=== PATIENT | male | born 1980 | race Caucasian/White ===

== ENCOUNTER 2016-02-26 10:00 | Emergency (ER) | payer OTHER ==
[~2016-02-26] VITALS: Ht 177.8 cm; Wt 98.0 kg
[2016-02-26 10:30] VITALS: BP 152/95; PULSE 51; RESP 14; O2SAT 99
[2016-02-26] MEDS ORDERED: 0.9% Sodium Chloride 1,000 ML IV ONE ×2 (10:43→12:20)
[2016-02-26] MEDS ORDERED: Promethazine Inj 25 MG in 0.9% Sodium Chloride 50 ML IV ONE (10:45)
[2016-02-26] MEDS ORDERED: HYDROmorphone 1 mg/mL Inj IVPUSH ONE (11:05)
--- NOTE | 2016-02-26 12:14 | ED.REPORT ---
HPI-General Illness Date of Service Feb 26, 2016 ED Provider: Blas Gao MD A 35 year old male with a history of HIV presents to the ED complaining of vomiting that began earlier today. Associated symptoms include nausea and diarrhea. He reports that he has intermittent episodes of nausea and vomiting that are typically relieved by Zofran. His last CD4 was 1401 on 07/14. He has been taking his anti retroviral medication as directed. Patient was sent from Urgent Care. He is seeking symptom control at this time. Patient denies hematochezia. Nursing Notes Stated Complaint: VOMITING/NAUSEA Chief Complaint: Male Abdominal Pain Nursing Notes Reviewed: Yes Allergies: Coded Allergies: doxycycline (Verified Allergy, Severe, anaphalaxis, 02/26/16) Scheduled PRN Ondansetron ODT (Zofran ODT) 8 Mg Tablet 8 MG PO Q4H PRN PRN For Nausea General Time Seen by MD: 10:26 Chief Complaint Vomiting Hx Obtained From: Patient Arrived By: Walk-in Sudden in Onset?: No Onset Occurred: 1 - 4 hours ago Symptom Duration: Since onset Associated with: Reports: Nausea, Vomiting Additional Notes: Diarrhea Pertinent Negative: Pt denies other symptoms Recent Healthcare: No recent doctor visit, No recent hospitalization Past Medical History Past Medical History HIV positive- currently on anti retroviral medication Past Surgical History None reported Smoking History Unknown if Ever Smoker Social History Other Social History: Local resident Ambulatory Status Independent Review of Systems Full Review of Systems Constitutional: Denies: Chills, Fever Respiratory: Denies: Shortness of breath Cardiovascular: Denies: Chest pain GI: Reports: Diarrhea, Nausea, Vomiting, Denies: Abdominal pain, Hematochezia Neurologic: Denies: Change LOC Complete sys rev & neg: except as marked. Physical Exam Vital Signs Vital Signs Date Time Temp Pulse Resp B/P Pulse Ox O2 Delivery O2 Flow Rate FiO2 02/26/16 13:51 134/88 02/26/16 10:30 37 51 14 152/95 99 Room Air Initial VS: Reviewed Head / Eyes: Atraumatic, Normocephalic, PERRL Neck: Supple, Non-tender, Full range of motion Extremities: Vascular intact, Neuro intact, No swelling, No tenderness Skin: Warm, Dry, No cyanosis Neurologic: Alert, Oriented, Nonfocal Psychiatric: Mood/affect normal, Behavior normal, Normal thought content General/Constitutional: Awake, Alert ENT: Atraumatic, Airway patent Mouth: Positive: Mucous membranes dry Respiratory / Chest: Atraumatic, Breath sounds NL, Breath sounds = bilat Cardiovascular: Heart rate NL, Regular rhythm, Heart sounds NL, No gallop, No murmurs, No rubs Abdomen: Atraumatic, Soft, Non-tender (Tolerates firm palpation to all 4 quadrants ), No rebound, BS normoactive, No distention ABDOMEN: No rigidity Lower Extremity / Pelvis / MS: Atraumatic, Non-tender (No calf tenderness), Neurologic intact, Vascular intact, No edema (No calf swelling ) Re-Eval/Medical Decision Med Decision/Clinical Course In summary, the patient is a 35-year-old male with a history of HIV, on HARRT who presents complaining of vomiting and diarrhea. He states that this is his baseline but occasionally has flares. His CD4 has been stable at 1500s and he is taking all of his antiretrovirals. LABS (from Urgent Care just prior to arrival) Leukocytes = 12.5 Stable hematocrit = 47.8 Good renal function No significant electrolyte abnormalities Normal lipase Normal bilirubin Abdominal examinations were benign and there are no findings suggest acute surgical intra-abdominal process. The patient stated this is similar to his previous episodes of vomiting and diarrhea that he was out of his antiemetics. I do not feel that imaging studies are indicated. I considered HIV specific causes of the patient's diarrhea however with a CD4 1500 and afebrile this seems unlikely. His symptoms are most likely secondary to his antiretroviral medications which have been the cause of the past. He was treated with antiemetics and IV fluids and reported significant symptomatic improvement. At this time feel it is appropriate for discharge. He was prescribed Zofran. Follow-up and return precautions were reviewed in detail he was discharged in good condition. Time of Eval: 12:49 Patient Status: Condition improved Re-Evaluation/Progress Note: Patient is rechecked. He is informed of his lab results and diagnosis. Patient understands and agrees with the treatment plan. Counseled Regarding: Diagnosis, Lab results, Need for follow-up, When/why to return to ED Discharge & Departure Primary Impression: Nausea & vomiting Vomiting type: unspecified Vomiting Intractability: unspecified Qualified Code: R11.2 - Nausea with vomiting, unspecified Additional Impressions: HIV positive History of antiretroviral therapy Diarrhea Dehydration Disposition: Home Discharge Condition All VS Reviewed: Yes Condition: Stable Patient Instructions: Acute Diarrhea (ED), Acute Nausea and Vomiting (ED) Additional Instructions: Thank you for seeking care at emergency room. You were seen today for a flare-up of your diarrhea and vomiting. Our primary goal today in the ED was to evaluate you for any life-threatening conditions. Your evaluation was reassuring. You will be discharged with a prescription for Zofran, please take as directed. You should follow-up with your primary doctor in the next week. You should return to the ED immediately if you develop worsening symptoms, inability to keep down fluids, fevers, bloody vomiting or diarrhea, cough, shortness of breath, chest pain, lightheadedness, weakness or any other concerning signs or symptoms. Thank you for letting us partake in your care today. Referrals: OTHER,PHYSICIAN (PCP) KRISH TRUJILLO [facility] Scribe Attestation Portions of this note were transcribed by Junior Vega. I, Dr. Gao personally performed the history, physical exam and medical decision-making; I reviewed and confirmed the accuracy of the information in the transcribed note. Signed by: Junior Vega, 02/26/16, 1252. Blas Gao MD Feb 26, 2016 12:14 JUNIOR VEGA Feb 26, 2016 12:18
[2016-02-26] MEDS ORDERED: ONDA8TAB7 PO (12:15)
[2016-02-26 13:51] VITALS: BP 134/88
== END 2016-02-26 13:52 | disposition home or self-care (01) ==
LOC: SED 10:00
DX: R11.2 Nausea with vomiting, unspecified (principal); E86.0 Dehydration; R19.7 Diarrhea, unspecified; Z21 Asymptomatic human immunodeficiency virus [HIV] infection status; Z92.29 Personal history of other drug therapy; Z88.8 Allergy status to other drugs, medicaments and biological substances
CPT/HCPCS: 96361; 96374; 96375; 99284; J1170; J7030

== ENCOUNTER 2016-03-22 20:29 | Emergency (ER) | payer OTHER ==
[~2016-03-22] VITALS: Ht 177.8 cm; Wt 100.0 kg
[~2016-03-22 20:29] MED LIST: ONDA8TAB7 PO
[2016-03-22 20:32] VITALS: BP 153/90; PULSE 88; RESP 16; O2SAT 97
--- NOTE | 2016-03-22 21:20 | ED.REPORT ---
HPI-Extremity Problem Lower Date of Service Mar 22, 2016 ED Provider: Everton Rincon MD Patient is a 35 year old male who is HIV positive and presents to the ED with left lower leg redness, warmth, tenderness, and swelling increasing over the past 5 days. He denies any extension of these symptoms above his knee. Patient denies a fever, chills, shortness of breath, or chest pain. He denies a history of MRSA. The patient is on anti-retroviral medication for his HIV, with his viral load has been undetectable for the past 5 years. He has not had any opportunistic infections. Nursing Notes Stated Complaint: L LEG PAIN/SWELLING Chief Complaint: Extremity Trauma Nursing Notes Reviewed: Yes Allergies: Coded Allergies: doxycycline (Verified Allergy, Severe, anaphalaxis, 03/22/16) Scheduled Cephalexin (Keflex) 500 Mg Capsule 500 MG PO QID Scheduled PRN Ondansetron ODT (Zofran ODT) 8 Mg Tablet 8 MG PO Q4H PRN PRN For Nausea General Time Seen by MD: 21:19 Chief Complaint Leg injury left Hx Obtained From: Patient Arrived By: Walk-in Onset Occurred: 5 days ago Symptom Duration: Since onset Location: : Leg left Quality: Painful Severity: Current: Moderate Severity: Maximum: Moderate Recent Healthcare: No recent doctor visit, No recent hospitalization Similar Sx Previous: No Past Medical History Past Medical History HIV positive- currently on anti retroviral medication Past Surgical History None reported Smoking History Unknown if Ever Smoker Social History Other Social History: Good social support, Local resident Ambulatory Status Independent Review of Systems Constitutional: Denies: Chills, Fever Musculoskeletal: Reports: Extremity pain, Extremity swelling Complete sys rev & neg: except as marked. Respiratory: Denies: Non-productive cough, Shortness of breath Cardiovascular: Denies: Chest pain Physical Exam Initial Vital Signs Vital Signs (First) Date Time Temp Pulse Resp B/P Pulse Ox O2 Delivery O2 Flow Rate FiO2 03/22/16 20:32 36.8 88 16 153/90 97 Room Air Initial VS: Reviewed Head / Eyes: Atraumatic, Normocephalic, PERRL ENT: Conjunctiva normal, No scleral icterus Neck: Supple, Full range of motion Upper Extremities: Vascular intact, Neuro intact Skin: Warm, Dry, No cyanosis Neurologic: Alert, Oriented, Nonfocal Psychiatric: Mood/affect normal, Behavior normal, Normal thought content Lower Extremity / Pelvis / MS: Neurologic intact, Vascular intact left lower extremity is tender, with 1+ edema, and a hazy red erythema over the anterior medial sanders. scratches on both legs, right >left. Ankle / Foot: Neurologic intact, Vascular intact General/Constitutional: Awake, Alert, No acute distress Respiratory / Chest: Breath sounds NL, Breath sounds = bilat, No respiratory distress, No rales, No rhonchi, No wheezing Cardiovascular: Heart rate NL, Regular rhythm, No murmurs Interpretation & Diagnostics Lab Results Interpretation Result Diagram: 03/22/16214403/22/162144 Test 03/22/16 21:45 White Blood Count 11.1th/mm3 (3.8-10.1) Red Blood Count 5.09mil/mm3 (4.40-5.80) Hemoglobin 16.0g/dL (13.8-17.2) Hematocrit 46.9% (41.0-50.0) Mean Corpuscular Volume 92.1fL (81-100) Mean Corpuscular Hemoglobin 31.4pg (27.0-35.0) Mean Corpuscular Hemoglobin Concent 34.1% (32.0-37.0) Red Cell Distribution Width 12.7% (12.3-15.4) Platelet Count 218bil/L (150-400) Neutrophils (%) (Auto) 63.7% (40-74) Lymphocytes (%) (Auto) 28.3% (14-46) Monocytes (%) (Auto) 6.8% (4-12) Eosinophils (%) (Auto) 0.5% (0-5) Basophils (%) (Auto) 0.4% (0-3) Sodium Level 139mEq/L (134-144) Potassium Level 4.0mEq/L (3.5-5.2) Chloride Level 99mEq/L (97-108) Carbon Dioxide Level 24mmol/L (18-29) Blood Urea Nitrogen 14mg/dL (6-20) Creatinine 0.66mg/dL (0.76-1.27) Estimat Glomerular Filtration Rate 146mL/min (>59) Glucose Level 99mg/dL (60-99) Calcium Level 9.8mg/dL (8.5-10.1) Total Bilirubin 0.3mg/dL (0.0-1.2) Aspartate Amino Transf (AST/SGOT) 34U/L (0-50) Alanine Aminotransferase (ALT/SGPT) 31U/L (0-44) Alkaline Phosphatase 67U/L (25-150) Total Protein 7.9g/dL (6.4-8.4) Albumin 4.8g/dL (3.4-5.0) Hold Marie Top Tube Received (Received) Re-Eval/Medical Decision Med Decision/Clinical Course Focal cellulitis on the lower left leg with skin scratches as the probable port of entry. No evidence of proximal edema or tenderness or cords, no specific risk factor for DVT in any case. He is begun with Keflex after IV Ancef here. Discharged home in stable condition. HIV disease is well controlled with zero viral copies and very adequate CD4 count on highly active antiretroviral therapy Source of Hx: Old records Re-Evaluation/Progress : Time of Eval: 23:34 Patient Status: Condition improved Re-Evaluation/Progress Note: Patient was treated for cellulitis in the ED and will be discharged on antibiotics. Patient understands and agrees with the plan to be discharged home. Discharge instructions and follow-up discussed. All questions were addressed. Return to the ED warnings given. Counseled Regarding: Diagnosis, Lab results, Need for follow-up, When/why to return to ED Discharge & Departure Impression: Primary Impression: Cellulitis of leg Laterality: left Qualified Code: L03.116 - Cellulitis of left lower limb Additional Impression: HIV positive Disposition: Home Discharge Condition All VS Reviewed: Yes Condition: Stable Patient Instructions: Cellulitis (ED) Additional Instructions: Keflex four times daily for ten days. Warm soaks four times daily to the lower leg Follow up with your doctor in the office Return here over the weekend if worsening despite treatment Referrals: OTHER,PHYSICIAN Jamarcusibjonas Attestation Portions of this note were transcribed by Kate Dhillon. I, Dr. Rincon personally performed the history, physical exam and medical decision-making; I reviewed and confirmed the accuracy of the information in the transcribed note. Signed by: Sukhjinder Rader, 03/22/2016 0699 copies to: OTHER,PHYSICIAN Everton Rincon MD Mar 22, 2016 21:20 Kate Dhillon Mar 22, 2016 21:29
[2016-03-22] MEDS ORDERED: CeFAZolin Inj 2 GM in IV Premix 1 EACH IV ONE (21:30)
[2016-03-22 21:56] LABS: BASOPHILS % (AUTO) 0.4 % (0-3); EOSINOPHILS % (AUTO) 0.5 % (0-5); MONOCYTES % (AUTO) 6.8 % (4-12); Mean Corpuscular Hemoglobin 31.4 pg (27.0-35.0); Mean Corpuscular Volume 92.1 fL (81-100); NEUTROPHILS % (AUTO) 63.7 % (40-74); Platelet Count 218 bil/L (150-400)
[2016-03-22] MEDS ORDERED: CEPH-512 PO (22:06)
[2016-03-22] MEDS ORDERED: 0.9% Sodium Chloride 1,000 ML IV ONE (22:25)
[2016-03-22 23:37] VITALS: BP 144/91; PULSE 70; RESP 18; O2SAT 97
== END 2016-03-22 23:39 | disposition home or self-care (01) ==
LOC: SED 20:29
DX: L03.116 Cellulitis of left lower limb (principal); Z21 Asymptomatic human immunodeficiency virus [HIV] infection status; Z88.1 Allergy status to other antibiotic agents
CPT/HCPCS: 36415; 80053; 85025; 87040; 96365; 99284; J0690; J7030

== ENCOUNTER 2016-03-29 12:59 | Emergency (ER) | payer OTHER ==
[~2016-03-29] VITALS: Ht 177.8 cm; Wt 100.0 kg
[~2016-03-29 12:59] MED LIST changes: +CEPH-512 PO
[2016-03-29 13:07] VITALS: BP 139/91; PULSE 70; RESP 16; O2SAT 98
[2016-03-29] MEDS ORDERED: EFAV1TAB PO (13:10)
--- NOTE | 2016-03-29 13:17 | ED.REPORT ---
HPI-Extremity Problem Lower Date of Service Mar 29, 2016 ED Provider: Simon Medeiros DO The patient is a 35 year old male with history of HIV who presents to the emergency department complaining of a left leg infection that began 10 days ago. He was seen in the emergency department 1 week ago for the same symptoms. He was given IV antibiotics and discharged home with oral cephalexin. Initially his symptoms were improving but has remained the same for the last 4-5 days. His symptoms have not worsened. He has experienced some pain, redness, warmth, and swelling. He denies fever, chills, nausea or vomiting. Nursing Notes Stated Complaint: LEFT LEG CELLULITIS Chief Complaint: Extremity Trauma Nursing Notes Reviewed: Yes Allergies: Coded Allergies: doxycycline (Verified Allergy, Severe, anaphalaxis, 03/29/16) Scheduled Cephalexin (Keflex) 500 Mg Capsule 500 MG PO QID Efavirenz/Emtricitab/Tenofovir (Atripla) 1 Each Tablet 1 TABLET PO DAILY Sulfamethoxazole/Trimeth 800-160 mg (Bactrim DS 800-160 mg) 1 Each Tablet 1 TABLET PO BID Scheduled PRN Ondansetron ODT (Zofran ODT) 8 Mg Tablet 8 MG PO Q4H PRN PRN For Nausea General Time Seen by MD: 13:15 Chief Complaint Leg injury left Hx Obtained From: Patient Arrived By: Walk-in Onset Occurred: More than a week ago... Symptom Duration: Since onset Location: : Leg left Quality: Painful Severity: Current: Mild Severity: Maximum: Moderate Recent Healthcare: No recent hospitalization, Recent doctor visit Similar Sx Previous: Yes Risk-Extremity Prob Lower Well's Criteria for DVT Well's DVT Score: 0 pts (low risk 5%) Past Medical History Past Medical History HIV positive- currently on anti retroviral medication Past Surgical History None reported Family History Noncontributory Smoking History Unknown if Ever Smoker Social History Other Social History: Good social support, Local resident Ambulatory Status Independent Review of Systems Constitutional: Denies: Chills, Fever Musculoskeletal: Reports: Extremity pain, Extremity swelling Skin: Reports Rash Complete sys rev & neg: except as marked. GI: Denies: Nausea, Vomiting Physical Exam Initial Vital Signs Vital Signs (First) Date Time Temp Pulse Resp B/P Pulse Ox O2 Delivery O2 Flow Rate FiO2 03/29/16 13:07 36.9 70 16 139/91 98 Room Air Initial VS: Reviewed Head / Eyes: Atraumatic, Normocephalic, PERRL ENT: Mucous membranes moist, Conjunctiva normal, No scleral icterus Neck: Supple, Non-tender, Full range of motion Respiratory: No respiratory distress Abdomen / GI: No distention Upper Extremities: Vascular intact, Neuro intact, No swelling, No tenderness Skin: Warm, Dry, No cyanosis Neurologic: Alert, Oriented, Nonfocal Psychiatric: Mood/affect normal, Behavior normal, Normal thought content Lower Extremity / Pelvis / MS: Neurologic intact, Vascular intact LEFT LEG: Minimal ankle swelling. Erythema of the distal third of his anterior sanders along the medial aspect. General/Constitutional: Awake, Alert Re-Eval/Medical Decision Med Decision/Clinical Course Partial treatment of a lower extremity cellulitis, well-appearing at this point, it does not sound like it has progressed but rather has not fully resolved. Will add Bactrim. Certainly does not appear septic or to have other deep space or life-threatening infection at this time. Patient is agreeable with discharge plan. Return precautions given. Source of Hx: Old records Re-Evaluation/Progress : Time of Eval: 13:35 Re-Evaluation/Progress Note: Discussed plan for discharge. All questions were addressed. Counseled Regarding: Diagnosis, Lab results, Need for follow-up, When/why to return to ED Discharge & Departure Impression: Primary Impression: Cellulitis of leg Laterality: left Qualified Code: L03.116 - Cellulitis of left lower limb Disposition: Home Discharge Condition All VS Reviewed: Yes Condition: Stable Additional Instructions: Thank you for entrusting us with your care today. We hope that you begin feeling better soon. Add Bactrim, this is an antibiotic that should help to clear your cellulitis. Keep you your foot elevated as much as possible, rest. Follow-up with a primary care doctor in the next 2 days for repeat evaluation. Return to the ER immediately if you develop high fever, shaking chills, lethargy , worsening redness swelling or rash, or other concerns Referrals: Sudha Gannon MDibjonas Attestation Portions of this note were transcribed by Aretha Neal. I, Dr. Medeiros personally performed the history, physical exam and medical decision-making; I reviewed and confirmed the accuracy of the information in the transcribed note. Signed by: Sukhjinder Ding, 03/28/2016 at 1345. Simon Medeiros DO Mar 29, 2016 13:17 Aretha Neal Mar 29, 2016 13:24
[2016-03-29] MEDS ORDERED: SULF1TAB35 PO (13:36)
== END 2016-03-29 13:52 | disposition home or self-care (01) ==
LOC: SED 12:59
DX: L03.116 Cellulitis of left lower limb (principal); X58.XXXA Exposure to other specified factors, initial encounter; Y93.9 Activity, unspecified; Y99.9 Unspecified external cause status; Y92.9 Unspecified place or not applicable; Z21 Asymptomatic human immunodeficiency virus [HIV] infection status; Z88.1 Allergy status to other antibiotic agents

== ENCOUNTER 2016-05-05 09:07 | Emergency (ER) | payer OTHER ==
[~2016-05-05 09:07] MED LIST changes: +EFAV1TAB PO; +SULF1TAB35 PO
[2016-05-05 09:09] VITALS: BP 159/102; PULSE 101; RESP 16; O2SAT 98
[2016-05-05] MEDS ORDERED: 0.9% Sodium Chloride 1,000 ML IV ONE (09:16)
[2016-05-05] MEDS ORDERED: Acetaminophen IV 1,000 MG in IV Premix 1 EACH IV ONE (09:20)
[2016-05-05] MEDS ORDERED: Pantoprazole 4 mg/mL 10 mL Inj IVPUSH ONE (09:20)
[2016-05-05] MEDS ORDERED: Dexamethasone 10 mg/mL Inj IVPUSH ONE (09:20)
[2016-05-05] MEDS ORDERED: MetoCLOpramide 5 mg/mL 2 mL Inj IVPUSH ONE (09:20)
[2016-05-05] MEDS ORDERED: Haloperidol 5 mg/mL Inj IVPUSH ONE (09:20)
[2016-05-05] MEDS: Ondansetron 2 mg/mL 2 mL Inj IVPUSH PRN ×2 (09:27→10:31)
[2016-05-05 10:07] LABS: BASOPHILS % (AUTO) 0.2 % (0-3); EOSINOPHILS % (AUTO) 0.3 % (0-5); MONOCYTES % (AUTO) 3.2 % (4-12); Mean Corpuscular Hemoglobin 31.1 pg (27.0-35.0); Mean Corpuscular Volume 92.8 fL (81-100); NEUTROPHILS % (AUTO) 77.2 % (40-74); Platelet Count 204 bil/L (150-400)
--- NOTE | 2016-05-05 10:09 | ED.REPORT ---
HPI-Abd Pain M Under 40 Date of Service May 05, 2016 ED Provider: Janes Gutierrez MD The patient is a 35 year old male with history of HIV, who presents to the emergency department complaining of nausea and vomiting that began at 0700 this morning while he was at work. He has also noticed abdominal pain and diaphoresis. He has had similar symptoms intermittently in the past. His symptoms are normally improved with Zofran but he did not have this medication with him at work. His last ED visit for similar symptoms was in early February. He was treated with IVF, hydromorphone, and promethazine, and was discharged home with Zofran. His current episode is similar to previous. In the past he had experienced episodes every few weeks. Over the last year he has only experienced 3-4 episodes. He denies fever, chills, bloody emesis, diarrhea, tarry/bloody stools, dysuria or hematuria. He has chronic diarrhea but he otherwise felt normal prior to this episode. He recently saw Dr. Guevara for left lower extremity cellulitis and is currently on Bactrim. Nursing Notes Stated Complaint: VOMITING Chief Complaint: Male Abdominal Pain Nursing Notes Reviewed: Yes Allergies: Coded Allergies: doxycycline (Verified Allergy, Severe, anaphalaxis, 03/29/16) Scheduled Cephalexin (Keflex) 500 Mg Capsule 500 MG PO QID Efavirenz/Emtricitab/Tenofovir (Atripla) 1 Each Tablet 1 TABLET PO DAILY Sulfamethoxazole/Trimeth 800-160 mg (Bactrim DS 800-160 mg) 1 Each Tablet 1 TABLET PO BID Scheduled PRN Ondansetron ODT (Zofran ODT) 8 Mg Tablet 8 MG PO Q4H PRN PRN For Nausea General Time Seen by MD: 09:15 Chief Complaint Nausea, Vomiting moderate Hx Obtained From: Patient Arrived By: Walk-in Sudden in Onset?: Yes Onset Occurred: 1 - 4 hours ago Symptom Duration: Since onset Progression since Onset: Constant Location: : Diffuse Quality: Painful Severity: Current: Moderate Severity: Maximum: Severe Associated with: Reports: Nausea, Vomiting Additional Notes: +diaphoresis Pertinent Negative: Pt denies other symptoms Recent Healthcare: No recent hospitalization, Recent doctor visit Similar Sx Previous: Yes Past Medical History Past Medical History HIV positive- currently on anti retroviral medication Past Surgical History None reported Family History Noncontributory Smoking History Unknown if Ever Smoker Social History Other Social History: Good social support, Local resident Ambulatory Status Independent Review of Systems Constitutional: Denies: Chills, Fever Respiratory: Denies: Non-productive cough GI: Reports: Abdominal pain, Diarrhea (chronic), Nausea, Vomiting, Denies: Bloody/tarry stool, Hematemesis, Hematochezia Male: Denies Dysuria, Denies Hematuria Complete sys rev & neg: except as marked. Skin: Reports Diaphoresis Physical Exam Initial Vital Signs Vital Signs (First) Date Time Temp Pulse Resp B/P Pulse Ox O2 Delivery O2 Flow Rate FiO2 05/05/16 09:09 35.2 101 16 159/102 98 Room Air Initial VS: Reviewed Head / Eyes: Atraumatic, Normocephalic, PERRL ENT: Mucous membranes moist, Conjunctiva normal, No scleral icterus Neck: Supple, Non-tender, Full range of motion Lymphatic: No lymphadenopathy Extremities: Vascular intact, Neuro intact, No swelling, No tenderness Neurologic: Alert, Oriented, Nonfocal Psychiatric: Mood/affect normal, Behavior normal, Normal thought content General/Constitutional: Awake, Alert, Cooperative Respiratory / Chest: Atraumatic, Breath sounds NL, Breath sounds = bilat, No respiratory distress, No rales, No rhonchi, No wheezing, No stridor Cardiovascular: Heart rate NL, Regular rhythm, Heart sounds NL, No gallop, No murmurs, No rubs, Peripheral circulation NL Abdomen: Soft, No guarding, No rebound, No distention, No hernia, No palpable mass, No pulsatile mass Tenderness/Guarding/Rebound: Positive: Tender diffuse Bowel Sounds / Distention: Positive: Bowel sounds hypoactive Back: No midline vertebral tend, No CVA tenderness Lower Extremity / Pelvis / MS: Atraumatic, Inspection NL, Full range of motion , No swelling, Non-tender, No erythema, No deformity, Neurologic intact, Vascular intact, No edema Color / Condition: Positive: Diaphoresis present Interpretation & Diagnostics Lab Results Interpretation Result Diagram: 05/05/1655 05/05/16 0955 Test 05/05/16 09:55 White Blood Count 9.5th/mm3 (3.8-10.1) Red Blood Count 4.88mil/mm3 (4.40-5.80) Hemoglobin 15.2g/dL (13.8-17.2) Hematocrit 45.3% (41.0-50.0) Mean Corpuscular Volume 92.8fL (81-100) Mean Corpuscular Hemoglobin 31.1pg (27.0-35.0) Mean Corpuscular Hemoglobin Concent 33.6% (32.0-37.0) Red Cell Distribution Width 13.3% (12.3-15.4) Platelet Count 204bil/L (150-400) Neutrophils (%) (Auto) 77.2% (40-74) Lymphocytes (%) (Auto) 18.8% (14-46) Monocytes (%) (Auto) 3.2% (4-12) Eosinophils (%) (Auto) 0.3% (0-5) Basophils (%) (Auto) 0.2% (0-3) Sodium Level 140mEq/L (134-144) Potassium Level 4.3mEq/L (3.5-5.2) Chloride Level 105mEq/L (97-108) Carbon Dioxide Level 19mmol/L (18-29) Blood Urea Nitrogen 16mg/dL (6-20) Creatinine 0.82mg/dL (0.76-1.27) Estimat Glomerular Filtration Rate 114mL/min (>59) Glucose Level 143mg/dL (60-99) Calcium Level 9.5mg/dL (8.5-10.1) Magnesium Level 1.9mg/dL (1.6-2.6) Total Bilirubin 0.2mg/dL (0.0-1.2) Aspartate Amino Transf (AST/SGOT) 43U/L (0-50) Alanine Aminotransferase (ALT/SGPT) 51U/L (0-44) Alkaline Phosphatase 67U/L (25-150) Total Protein 7.1g/dL (6.4-8.4) Albumin 4.9g/dL (3.4-5.0) Lipase 37U/L (13-60) Hold Amrie Top Tube Received (Received) Re-Eval/Medical Decision Source of Hx: Old records Re-Evaluation/Progress #1: Time of Eval: 10:02 Re-Evaluation/Progress Note: He is still complainig of abdominal pain. Re-Evaluation/Progress #2: Time of Eval: 10:50 Re-Evaluation/Progress Note: Rechecked the patient. He is feeling better. Re-Evaluation/Progress #3: Time of Eval: 11:20 Re-Evaluation/Progress Note: Discussed plan for discharge. All questions were addressed. Counseled Regarding: Diagnosis, Lab results, Need for follow-up, When/why to return to ED Patient Discharge & Departure Primary Impression: Nausea & vomiting Vomiting type: unspecified Vomiting Intractability: unspecified Qualified Code: R11.2 - Nausea with vomiting, unspecified Disposition: Home Discharge Condition All VS Reviewed: Yes Condition: Stable Patient Instructions: Acute Nausea and Vomiting (ED) Additional Instructions: Thank you for entrusting us with your care today. You can use Zofran as needed for your nausea and vomiting. Drink fluids as tolerated. When you feel like eating you should start with bland foods. Followup with Dr. Guevara as previously scheduled. Pleas return to the emergency department for any new or concerning symptoms. Referrals: Michael Guevara MD Attestation Portions of this note were transcribed by Aretha Neal. I, Dr. Gutierrez personally performed the history, physical exam and medical decision-making; I reviewed and confirmed the accuracy of the information in the transcribed note. Signed by: Sukhjinder Ding, 05/05/2016 and 1140. copies to: Michael Guevara MD, Kirk H MD May 05, 2016 10:09 Aretha Neal May 05, 2016 10:12
[2016-05-05] MEDS ORDERED: HYDROmorphone 1 mg/mL Inj IVPUSH ONE (10:10)
[2016-05-05 10:30] LABS: Magnesium 1.9 mg/dL (1.6-2.6)
[2016-05-05 10:54] VITALS: BP 123/53; PULSE 77; RESP 13; O2SAT 94
[2016-05-05 11:46] VITALS: BP 122/68; PULSE 71; RESP 15; O2SAT 96
== END 2016-05-05 11:45 | disposition home or self-care (01) ==
LOC: SED 09:07
DX: R11.2 Nausea with vomiting, unspecified (principal); R10.9 Unspecified abdominal pain; R61 Generalized hyperhidrosis; B20 Human immunodeficiency virus [HIV] disease; Z88.1 Allergy status to other antibiotic agents
CPT/HCPCS: 36415; 80053; 83690; 83735; 85025; 96361; 96374; 96375; 96376; 99284; J0131; J1100; J1170; J1200; J1630; J1885; J2405; J2765; J7030

== ENCOUNTER 2016-06-15 07:43 | Emergency (ER) | payer OTHER ==
[~2016-06-15] VITALS: Ht 177.8 cm; Wt 95.5 kg
--- NOTE | 2016-06-15 07:51 | ED.REPORT ---
HPI-General Illness Date of Service Jun 15, 2016 ED Provider: Dr. Simon Medeiros MD A 35 year old male with a history of HIV on antiretroviral medication presents to the ED with persistent vomiting that began 2 days ago. His symptoms have been present intermittently for the past year but became increasingly worse this morning. Associated symptoms include diaphoresis, nausea, diarrhea, abdominal discomfort and chills. His symptoms feel similar to his previous episodes, however, his symptoms were not relieved by his usual remedies (Zofran and hot shower). Patient was seen in the ED on 05/05 for similar symptoms and was discharged in good condition with a plan to follow-up with GI. He has been taking medication as prescribed and his last CD4 count was 1500. Nursing Notes Stated Complaint: VOMITING Chief Complaint: Male Abdominal Pain Nursing Notes Reviewed: Yes Allergies: Coded Allergies: doxycycline (Verified Allergy, Severe, anaphalaxis, 03/29/16) Scheduled Cephalexin (Keflex) 500 Mg Capsule 500 MG PO QID Efavirenz/Emtricitab/Tenofovir (Atripla) 1 Each Tablet 1 TABLET PO DAILY Ranitidine (Ranitidine) 150 Mg Capsule 150 MG PO BID Sulfamethoxazole/Trimeth 800-160 mg (Bactrim DS 800-160 mg) 1 Each Tablet 1 TABLET PO BID Scheduled PRN Metoclopramide (Reglan) 10 Mg Tablet 10 MG PO QID PRN PRN For Nausea/Vomiting Ondansetron ODT (Zofran ODT) 8 Mg Tablet 8 MG PO Q4H PRN PRN For Nausea General Time Seen by MD: 07:50 Chief Complaint Vomiting Hx Obtained From: Patient Arrived By: Walk-in Sudden in Onset?: No Onset Occurred: 1 - 4 hours ago Symptom Duration: Since onset Location: : Abdomen Quality: Painful ("acidic") Radiation: : Does not radiate Severity: Current: Mild Severity: Maximum: Moderate Associated with: Reports: Abdominal pain, Diaphoresis, Nausea, Vomiting Pertinent Negative: Pt denies other symptoms Pertinent Negative: Relieved by nothing Recent Healthcare: No recent doctor visit, No recent hospitalization Past Medical History Past Medical History HIV positive- currently on anti retroviral medication Past Surgical History None reported Family History Noncontributory Smoking History Unknown if Ever Smoker Social History Drug Use: THC Other Social History: Good social support, Local resident Ambulatory Status Independent Review of Systems Full Review of Systems Constitutional: Reports: Chills GI: Reports: Abdominal pain ("acidic"), Diarrhea, Nausea, Vomiting Skin: Reports Diaphoresis Complete sys rev & neg: except as marked. Physical Exam Vital Signs Vital Signs Date Time Temp Pulse Resp B/P Pulse Ox O2 Delivery O2 Flow Rate FiO2 06/15/16 12:55 61 15 136/88 96 Room Air 06/15/16 09:37 77 18 141/79 99 Room Air 06/15/16 08:10 36.5 103 34 143/89 98 Room Air 06/15/16 07:45 Room Air Initial VS: Reviewed Neck: Supple, Non-tender, Full range of motion Extremities: Vascular intact, Neuro intact, No swelling, No tenderness Skin: Warm, Dry, No cyanosis Neurologic: Alert, Oriented, Nonfocal Psychiatric: Mood/affect normal, Behavior normal, Normal thought content General/Constitutional: Awake, Alert Distress / Hydration: Positive: Distress moderate Head / Eyes: Atraumatic, Normocephalic, PERRL Respiratory / Chest: Atraumatic, Breath sounds NL, Breath sounds = bilat, No respiratory distress Cardiovascular: Heart rate NL, Regular rhythm, Heart sounds NL Abdomen: Atraumatic, Soft, Non-tender, No guarding, No rebound Skin: Atraumatic, Color NL Color / Condition: Positive: Diaphoresis present Interpretation & Diagnostics Lab Results Interpretation Result Diagram: 06/15/16 0800 06/15/16 0800 Test 06/15/16 08:00 White Blood Count 10.6th/mm3 (3.8-10.1) Red Blood Count 5.26mil/mm3 (4.40-5.80) Hemoglobin 16.6g/dL (13.8-17.2) Hematocrit 48.7% (41.0-50.0) Mean Corpuscular Volume 92.6fL (81-100) Mean Corpuscular Hemoglobin 31.6pg (27.0-35.0) Mean Corpuscular Hemoglobin Concent 34.1% (32.0-37.0) Red Cell Distribution Width 13.7% (12.3-15.4) Platelet Count 266bil/L (150-400) Neutrophils (%) (Auto) 61.3% (40-74) Lymphocytes (%) (Auto) 30.8% (14-46) Monocytes (%) (Auto) 6.2% (4-12) Eosinophils (%) (Auto) 0.9% (0-5) Basophils (%) (Auto) 0.5% (0-3) Sodium Level 139mEq/L (134-144) Potassium Level 4.0mEq/L (3.5-5.2) Chloride Level 103mEq/L (97-108) Carbon Dioxide Level 18mmol/L (18-29) Blood Urea Nitrogen 16mg/dL (6-20) Creatinine 0.75mg/dL (0.76-1.27) Estimat Glomerular Filtration Rate 126mL/min (>59) Glucose Level 138mg/dL (60-99) Calcium Level 10.8mg/dL (8.5-10.1) Magnesium Level 2.1mg/dL (1.6-2.6) Total Bilirubin 0.4mg/dL (0.0-1.2) Aspartate Amino Transf (AST/SGOT) 43U/L (0-50) Alanine Aminotransferase (ALT/SGPT) 53U/L (0-44) Alkaline Phosphatase 73U/L (25-150) Total Protein 8.6g/dL (6.4-8.4) Albumin 5.5g/dL (3.4-5.0) Lipase 31U/L (13-60) Hold Marie Top Tube Received (Received) Re-Eval/Medical Decision Time of Eval: 08:53 Patient Status: Condition unchanged Re-Evaluation/Progress Note: Patient is rechecked. Nausea is still present. Time of Eval: 09:26 Patient Status: Condition unchanged Re-Evaluation/Progress Note: Patient's vomiting persists. He would like to receive Reglan to help with the nausea. Time of Eval: 10:32 Patient Status: Condition improved Re-Evaluation/Progress Note: His symptoms have improved. He is informed of his lab results. Time of Eval: 12:38 Patient Status: Condition improved Re-Evaluation/Progress Note: Patient passes PO trial. He reports that his symptoms have improved. He is requesting ranitidine. Counseled Regarding: Diagnosis, Lab results, Need for follow-up, When/why to return to ED Discharge & Departure Primary Impression: Nausea & vomiting Vomiting type: cyclical vomiting Vomiting Intractability: unspecified Qualified Code: G43.A0 - Cyclical vomiting, not intractable Disposition: Home Discharge Condition All VS Reviewed: Yes Condition: Improved Patient Instructions: Acute Nausea and Vomiting (ED) Additional Instructions: Thank you for trusting us with your care this morning. Your emergency department results including lab work and examination are reassuring. A clear cause of your symptoms was not identified and I recommend you schedule a follow up appointment with your primary care physician in the next week for a recheck. Please take 1 Zofran or Reglan every 8 hours as needed for nausea and take ranitidine as prescribed. Please return to the ED if you begin to experience any new or worsening symptoms including any fever, chills, persistent vomiting or dizziness. Referrals: [facility] (PCP) [facility] Scribe Attestation Portions of this note were transcribed by Junior Henderson. I, Dr. Medeiros personally performed the history, physical exam and medical decision-making; I reviewed and confirmed the accuracy of the information in the transcribed note. Signed by: Sukhjinder Kruger, 06/15/16 1310. Simon Medeiros DO Jun 15, 2016 07:51 JUNIOR HENDERSON Jun 15, 2016 07:58
[2016-06-15] MEDS ORDERED: 0.9% Sodium Chloride 1,000 ML IV ONE ×3 (07:57→12:05)
[2016-06-15] MEDS ORDERED: Promethazine Inj 25 MG in 0.9% Sodium Chloride-Pha MIX 100 ML IV ONE (08:00)
[2016-06-15] MEDS: Ondansetron 2 mg/mL 2 mL Inj IVPUSH PRN ×2 (08:02→08:17)
[2016-06-15] MEDS: HYDROmorphone 0.5 mg/0.5 mL iSecure Syringe IVPUSH PRN ×2 (08:04→08:45)
[2016-06-15 08:10] VITALS: BP 143/89; PULSE 103; RESP 34; O2SAT 98
[2016-06-15] MEDS ORDERED: Pantoprazole 4 mg/mL 10 mL Inj IVPUSH ONE (08:10)
[2016-06-15 08:18] LABS: BASOPHILS % (AUTO) 0.5 % (0-3); EOSINOPHILS % (AUTO) 0.9 % (0-5); MONOCYTES % (AUTO) 6.2 % (4-12); Mean Corpuscular Hemoglobin 31.6 pg (27.0-35.0); Mean Corpuscular Volume 92.6 fL (81-100); NEUTROPHILS % (AUTO) 61.3 % (40-74); Platelet Count 266 bil/L (150-400)
[2016-06-15 08:50] LABS: Magnesium 2.1 mg/dL (1.6-2.6)
[2016-06-15] MEDS ORDERED: Haloperidol 5 mg/mL Inj IVPUSH ONE ×2 (09:15→09:55)
[2016-06-15 09:37] VITALS: BP 141/79; PULSE 77; RESP 18; O2SAT 99
[2016-06-15] MEDS ORDERED: MetoCLOpramide 5 mg/mL 2 mL Inj IVPUSH ONE (10:20)
[2016-06-15] MEDS ORDERED: METO-301 PO (11:08)
[2016-06-15] MEDS ORDERED: LidocaineVisc 2%:Antacid 1:1 10 mL Syringe PO ONE (11:40)
[2016-06-15] MEDS ORDERED: RANI150C4 PO (12:43)
[2016-06-15 12:55] VITALS: BP 136/88; PULSE 61; RESP 15; O2SAT 96
== END 2016-06-15 11:07 | disposition home or self-care (01) ==
LOC: SED 07:43
DX: G43.A0 Cyclical vomiting, in migraine, not intractable (principal); F12.90 Cannabis use, unspecified, uncomplicated; Z21 Asymptomatic human immunodeficiency virus [HIV] infection status; Z79.899 Other long term (current) drug therapy; Z88.1 Allergy status to other antibiotic agents
CPT/HCPCS: 36415; 80053; 83690; 83735; 85025; 96361; 96365; 96375; 96376; 99284; J1170; J1200; J1630; J2405; J2550; J2765; J7030

== ENCOUNTER 2016-07-28 20:51 | Emergency (ER) | payer OTHER ==
[~2016-07-28] VITALS: Ht 177.8 cm; Wt 90.9 kg
[~2016-07-28 20:51] MED LIST changes: +METO-301 PO; +RANI150C4 PO
[2016-07-28 20:56] VITALS: BP 145/103; PULSE 129; RESP 18; O2SAT 98
--- NOTE | 2016-07-28 21:30 | ED.REPORT ---
HPI-General Illness Date of Service Jul 28, 2016 ED Provider: Leon Momin MD A 35 year old male with a history of cyclic vomiting and AIDS on retroviral medication presents to the ED complaining of an episode of cyclic vomiting onset 15:30 today. The pt has taken three rounds of Zofran since this episode began without relief. He also complains of generalized abdominal discomfort and persistent nausea that have been present for the last two weeks. No acute pain is reported today. The pt has a history of medicinal marijuana use, but has not used any in four days. Nursing Notes Stated Complaint: NAUSEA AND VOMITING Chief Complaint: Male Abdominal Pain Nursing Notes Reviewed: Yes Allergies: Coded Allergies: doxycycline (Verified Allergy, Severe, anaphalaxis, 07/28/16) Scheduled Cephalexin (Keflex) 500 Mg Capsule 500 MG PO QID Efavirenz/Emtricitab/Tenofovir (Atripla) 1 Each Tablet 1 TABLET PO DAILY Ranitidine (Ranitidine) 150 Mg Capsule 150 MG PO BID Sulfamethoxazole/Trimeth 800-160 mg (Bactrim DS 800-160 mg) 1 Each Tablet 1 TABLET PO BID Scheduled PRN Metoclopramide (Reglan) 10 Mg Tablet 10 MG PO QID PRN PRN For Nausea/Vomiting Ondansetron ODT (Zofran ODT) 8 Mg Tablet 8 MG PO Q4H PRN PRN For Nausea General Time Seen by MD: 21:20 Chief Complaint Vomiting Hx Obtained From: Patient Arrived By: Walk-in Sudden in Onset?: Yes Onset Occurred: 5 - 8 hours ago Symptom Duration: Since onset Recent Healthcare: No recent hospitalization, Recent doctor visit Similar Sx Previous: Yes Past Medical History Past Medical History HIV positive- currently on anti retroviral medication Past Surgical History None reported Family History Noncontributory Smoking History Unknown if Ever Smoker Social History Drug Use: THC Other Social History: Good social support, Local resident Ambulatory Status Independent Review of Systems Full Review of Systems Respiratory: Denies: Non-productive cough, Shortness of breath Cardiovascular: Denies: Chest pain GI: Reports: Abdominal pain (discomfort), Nausea, Vomiting Musculoskeletal: Denies: Back pain, Neck pain Skin: Denies Rash Complete sys rev & neg: except as marked. Physical Exam Constitutional: Well-developed, well-nourished. Not diaphoretic. Appears uncomfortable. Actively vomiting. Head: Normocephalic and atraumatic. Mouth/Throat: Oropharynx is clear and moist. No oropharyngeal exudate. Eyes: EOM are normal. Pupils are equal, round, and reactive to light. Neck: Supple, no tracheal deviation. Cardiovascular: Normal rate, regular rhythm. Equal and intact distal pulses throughout. Pulmonary/Chest: Effort normal and breath sounds normal. No respiratory distress. Abdominal: Soft. No distension. General abdominal discomfort without tenderness , rebound, or guarding. No point tenderness. Bowel sounds present. Musculoskeletal: Range of motion grossly intact, moving all extremities. No edema or tenderness appreciated. Neurological: AOx3. Grossly nonfocal exam. Strength and sensation intact and equal to bilateral upper and lower extremities. Skin: Warm and dry, no rashes or pallor appreciated. Psychiatric: Appropriate mood and affect. Behavior appears normal. Vital Signs Vital Signs Date Time Temp Pulse Resp B/P Pulse Ox O2 Delivery O2 Flow Rate FiO2 07/28/16 20:56 36.4 129 18 145/103 98 Room Air Initial VS: Reviewed Interpretation & Diagnostics Lab Results Interpretation Test 07/28/16 22:04 Hold Purple Top Tube Received (Received) Hold Blue Top Tube Received (Received) Hold [place] Top Tube Received (Received) Re-Eval/Medical Decision Source of Hx: Old records Time of Eval: 00:17 Re-Evaluation/Progress Note: Pt rechecked, who is still retching. The plan for further treatment is discussed. Time of Eval: 01:23 Re-Evaluation/Progress Note: Pt eloped without discussing options for further treatment or AMA. Counseled Regarding: Diagnosis, Lab results, Need for follow-up, When/why to return to ED Discharge & Departure Primary Impression: Nausea & vomiting Vomiting type: unspecified Vomiting Intractability: non-intractable Qualified Code: R11.2 - Nausea with vomiting, unspecified Discharge Condition All VS Reviewed: Yes Condition: Stable Referrals: [facility] Scribe Attestation Portions of this note were transcribed by Chema Rodrigues. I, Dr. Momin personally performed the history, physical exam and medical decision-making; I reviewed and confirmed the accuracy of the information in the transcribed note. Signed by: Sukhjinder Terrell, 07/29/16 and 0126. copies to: [facility] Leon Momin MD Jul 28, 2016 21:30 CHEMA RODRIGUES Jul 28, 2016 21:38 [facility] Sukhjinder Attestation Portions of this note were transcribed by Chema Rodrigues. I, Dr. Momin personally performed the history, physical exam and medical decision-making; I reviewed and confirmed the accuracy of the information in the transcribed note. Signed by: Sukhjinder Terrell, 07/28/16 and 2133. copies to: [facility] Leon Momin MD Jul 28, 2016 21:30 CHEMA RODRIGUES Jul 28, 2016 21:38
[2016-07-28] MEDS ORDERED: 0.9% Sodium Chloride 1,000 ML IV ONE (21:58)
[2016-07-28] MEDS ORDERED: MetoCLOpramide 5 mg/mL 2 mL Inj IVPUSH ONE (22:00)
[2016-07-29] MEDS ORDERED: MetoCLOpramide 5 mg/mL 2 mL Inj IVPUSH PRN (01:10)
[2016-07-29] MEDS ORDERED: ONDA8TAB7 PO (15:12)
== END 2016-07-29 01:24 | disposition home or self-care (01) ==
LOC: SED 20:51
DX: R11.2 Nausea with vomiting, unspecified (principal); R10.9 Unspecified abdominal pain; B20 Human immunodeficiency virus [HIV] disease; Z88.1 Allergy status to other antibiotic agents
CPT/HCPCS: 96361; 96374; 96375; 96376; 99284; J2060; J2765; J7030

== ENCOUNTER 2016-07-29 10:38 | Emergency (ER) | payer OTHER ==
[~2016-07-29] VITALS: Ht 177.8 cm; Wt 90.9 kg
[2016-07-29 10:41] VITALS: BP 181/98; PULSE 114; RESP 18; O2SAT 99
--- NOTE | 2016-07-29 11:09 | ED.REPORT ---
HPI-Abd Pain M Under 40 Date of Service Jul 29, 2016 ED Provider: History of Present Illness: 35yo male with 2 days of worsening vomiting, also several episodes of diarrhea. Seen in this ED yesterday, however he eloped prior to completion of evaluation. He uses medical cannibis to aid nausea, is HIV positive. Denies fever, IVDA, alcohol use, hematemesis, hematochesia. He has previously been hospitalized at [facility] for similar symptoms. Nursing Notes Stated Complaint: ABD PAIN,VOMITING Chief Complaint: Male Abdominal Pain Nursing Notes Reviewed: Yes Allergies: Coded Allergies: doxycycline (Verified Allergy, Severe, anaphalaxis, 07/29/16) Scheduled Cephalexin (Keflex) 500 Mg Capsule 500 MG PO QID Efavirenz/Emtricitab/Tenofovir (Atripla) 1 Each Tablet 1 TABLET PO DAILY Ranitidine (Ranitidine) 150 Mg Capsule 150 MG PO BID Sulfamethoxazole/Trimeth 800-160 mg (Bactrim DS 800-160 mg) 1 Each Tablet 1 TABLET PO BID Scheduled PRN Metoclopramide (Reglan) 10 Mg Tablet 10 MG PO QID PRN PRN For Nausea/Vomiting Ondansetron ODT (Zofran ODT) 8 Mg Tablet 8 MG PO Q4H PRN PRN For Nausea Ondansetron ODT (Zofran ODT) 8 Mg Tablet 8 MG PO QID PRN PRN For Nausea General Time Seen by MD: 11:03 Chief Complaint Abdominal pain, Nausea, Vomiting moderate Hx Obtained From: Patient Arrived By: Walk-in Sudden in Onset?: Yes Onset Occurred: 2 days ago Symptom Duration: Waxes and wanes Progression since Onset: Gradually worsening Location: : Diffuse Quality: Same as prior Severity: Current: Mild Severity: Maximum: Mild Associated with: Reports: Diarrhea, Nausea, Vomiting, Denies: Chest pain, Chills, Fever, Hematemesis, Hematochezia, Hematuria, Melena Pertinent Negative: Pt denies other symptoms Exacerbated by: Eating Pertinent Negative: Relieved by nothing Recent Healthcare: Recent doctor visit Similar Sx Previous: Yes Risk Factors Torsion Risk Stratification Risk factors reviewed CAD Risk Stratification Risk factors reviewed TAD Risk Stratification Risk factors reviewed Past Medical History Past Medical History HIV positive- currently on anti retroviral medication Past Surgical History Reports: Cholecystectomy Family History Noncontributory Smoking History Unknown if Ever Smoker Social History Alcohol Use: Denies alcohol use Drug Use: THC Other Social History: Good social support, Local resident Ambulatory Status Independent Review of Systems Constitutional: Denies: Chills, Fever Respiratory: Denies: Shortness of breath, Wheezing Cardiovascular: Denies: Chest pain GI: Reports: Abdominal pain, Diarrhea, Nausea, Vomiting Complete sys rev & neg: except as marked. Physical Exam Initial Vital Signs Vital Signs (First) Date Time Temp Pulse Resp B/P Pulse Ox O2 Delivery O2 Flow Rate FiO2 07/29/16 10:41 114 18 181/98 99 Room Air Initial VS: Reviewed General/Constitutional: Awake, Not toxic appearing Distress / Hydration: Positive: Dehydration mild, Distress mild Behavior: Positive: Anxious Respiratory / Chest: Breath sounds NL, Breath sounds = bilat, No respiratory distress Cardiovascular: Regular rhythm, Heart sounds NL Heart Rate / Rhythm: Positive: Tachycardia Abdomen: Soft, No guarding, No rebound, BS normoactive Tenderness/Guarding/Rebound: Positive: Tender diffuse Interpretation & Diagnostics Interpretation & Diagnostics: Dip UA negative, UDS shows only marijuana Lab Results Interpretation Result Diagram: 07/29/16 1120 07/29/16 1120 Test 07/29/16 11:20 07/29/16 14:20 White Blood Count 18.3th/mm3 (3.8-10.1) Red Blood Count 5.04mil/mm3 (4.40-5.80) Hemoglobin 15.7g/dL (13.8-17.2) Hematocrit 45.8% (41.0-50.0) Mean Corpuscular Volume 90.9fL (81-100) Mean Corpuscular Hemoglobin 31.2pg (27.0-35.0) Mean Corpuscular Hemoglobin Concent 34.3% (32.0-37.0) Red Cell Distribution Width 13.3% (12.3-15.4) Platelet Count 294bil/L (150-400) Neutrophils (%) (Auto) 77.3% (40-74) Lymphocytes (%) (Auto) 13.6% (14-46) Monocytes (%) (Auto) 8.7% (4-12) Eosinophils (%) (Auto) 0% (0-5) Basophils (%) (Auto) 0.1% (0-3) Sodium Level 135mEq/L (134-144) Potassium Level 3.8mEq/L (3.5-5.2) Chloride Level 99mEq/L (97-108) Carbon Dioxide Level 18mmol/L (18-29) Blood Urea Nitrogen 20mg/dL (6-20) Creatinine 0.78mg/dL (0.76-1.27) Estimat Glomerular Filtration Rate 120mL/min (>59) Glucose Level 150mg/dL (60-99) Calcium Level 10.6mg/dL (8.5-10.1) Total Bilirubin 0.7mg/dL (0.0-1.2) Aspartate Amino Transf (AST/SGOT) 37U/L (0-50) Alanine Aminotransferase (ALT/SGPT) 47U/L (0-44) Alkaline Phosphatase 75U/L (25-150) Total Protein 8.4g/dL (6.4-8.4) Albumin 5.1g/dL (3.4-5.0) Lipase 23U/L (13-60) Urine Color Yellow (YELLOW) Urine Appearance Hazy (CLEAR,HAZY) Urine pH 6.0 (5.0-8.0) Urine Specific [place] 1.010 (1.003-1.035) Urine Protein Tracemg/dL (NEG,TRACE) Urine Glucose (UA) Negativemg/dL (NEGATIVE) Urine Ketones Negativemg/dL (NEGATIVE) Urine Occult Blood Trace (NEGATIVE) Urine Nitrite Negative (NEGATIVE) Urine Bilirubin Negative (NEGATIVE) Urine Urobilinogen Normalmg/dL (NORMAL) Urine Leukocyte Esterase Negative (NEGATIVE) Urine RBC 0-2/hpf (0-2) Urine WBC 0-5/hpf (0-5) Urine Epithelial Cells Occasional/hpf (NONE-MOD) Urine Crystals None seen (NONE SEEN) Urine Bacteria None/hpf (NONE-FEW) Urine Hyaline Casts None/lpf (NONE) Urine Granular Casts None seen (NONE SEEN) Urine Waxy Casts None seen (NONE SEEN) Urine Red Blood Cell Casts None seen (NONE SEEN) Urine White Blood Cell Casts None seen (NONE SEEN) Urine Mucus Present (None Seen) Urine Trichomonas None seen (NONE SEEN) Urine Yeast None (NONE SEEN) Urinalysis Comment None Urine Culture Reflexed Not indicated Re-Eval/Medical Decision Med Decision/Clinical Course Pt examined multiple times throughout lengthy ED evaluation. He steadily improved, rested comfortably. Tolerated PO challenge with Sprite and applesauce. Leukocytosis likely due to cyclic vomiting. Will treat at home with supportive care and encourage abstinence from cannabis use. Differential Diagnosis: Positive: Gastroenteritis Diagnosis Appears: Evident Counseled Regarding: Diagnosis, Lab results, Need for follow-up, When/why to return to ED Patient Discharge & Departure Shift Change Sign-Out Response to Therapy: Improved Primary Impression: Cyclic vomiting syndrome Vomiting Intractability: non-intractable Nausea presence: with nausea Qualified Code: G43.A0 - Cyclical vomiting, not intractable Additional Impression: History of antiretroviral therapy Disposition: Home Patient Instructions: Acute Nausea and Vomiting (ED) Additional Instructions: Rest, clear liquids for 24 hours, slowly advance diet. take meds as needed for nausea. Avoid any cannabis use. Follow up with your doctor tomorrow if not improved, return to ER if anything worsens. Referrals: PCP 1 Day if not improving as expected EDSupervising Provider for APC: Janes Gutierrez MD, Christopher R PAC Jul 29, 2016 11:09
[2016-07-29] MEDS ORDERED: Haloperidol 5 mg/mL Inj IVPUSH ONE (11:10)
[2016-07-29] MEDS ORDERED: 0.9% Sodium Chloride 1,000 ML IV ONE (11:10)
[2016-07-29 11:31] LABS: BASOPHILS % (AUTO) 0.1 % (0-3); EOSINOPHILS % (AUTO) 0 % (0-5); MONOCYTES % (AUTO) 8.7 % (4-12); Mean Corpuscular Hemoglobin 31.2 pg (27.0-35.0); Mean Corpuscular Volume 90.9 fL (81-100); NEUTROPHILS % (AUTO) 77.3 % (40-74); Platelet Count 294 bil/L (150-400)
[2016-07-29] MEDS: Ondansetron 2 mg/mL 2 mL Inj IVPUSH PRN ×2 (11:36→13:01)
[2016-07-29 12:12] VITALS: BP 134/75; PULSE 91; RESP 16; O2SAT 94
[2016-07-29] MEDS ORDERED: 0.9% Sodium Chloride 1,000 ML IV SCH (12:20)
[2016-07-29] MEDS ORDERED: LidocaineVisc 2%:Antacid 1:1 10 mL Syringe PO SCH (14:05)
[2016-07-29 14:17] VITALS: BP 136/61; PULSE 100; RESP 16; O2SAT 99
[2016-07-29 14:48] LABS: APPEARANCE,URINE HAZY (CLEAR,HAZY); COLOR,URINE YELLOW (YELLOW); OCCULT BLOOD,URINE TRACE (NEGATIVE); UROBILINOGEN,URINE NORMAL (NORMAL)
[2016-07-29] MEDS ORDERED: ONDA8TAB7 PO (15:12)
[2016-07-29 15:56] VITALS: BP 136/61; PULSE 100; RESP 16; O2SAT 99
== END 2016-07-29 15:30 | disposition home or self-care (01) ==
LOC: SED 10:38
DX: G43.A0 Cyclical vomiting, in migraine, not intractable (principal); B20 Human immunodeficiency virus [HIV] disease; F12.90 Cannabis use, unspecified, uncomplicated; Z79.899 Other long term (current) drug therapy; Z88.1 Allergy status to other antibiotic agents
CPT/HCPCS: 36415; 80053; 81000; 81002; 83690; 85025; 96361; 96374; 96375; 96376; 99284; J1630; J2405; J7030

== ENCOUNTER 2016-08-26 02:19 | Emergency (ER) | payer OTHER ==
[~2016-08-26] VITALS: Ht 177.8 cm; Wt 87.3 kg
[2016-08-26 02:22] VITALS: BP 152/101; PULSE 100; RESP 18; O2SAT 98
--- NOTE | 2016-08-26 02:33 | ED.REPORT ---
HPI-GI Bleed Date of Service Aug 26, 2016 ED Provider: Jayesh Allen MD Pt is an otherwise healthy 35 year old male who presents to the ED complaining of darkened stool. He c/o associated cramping. He denies nausea and any other symptoms. Pt reports that he had a colonoscopy and endoscopy today at 14:30 at [facility]. Nursing Notes Stated Complaint: BLK TARRY STOOL,CRAMPING Chief Complaint: Male Abdominal Pain Nursing Notes Reviewed: Yes Allergies: Coded Allergies: doxycycline (Verified Allergy, Severe, anaphalaxis, 07/29/16) Scheduled Cephalexin (Keflex) 500 Mg Capsule 500 MG PO QID Efavirenz/Emtricitab/Tenofovir (Atripla) 1 Each Tablet 1 TABLET PO DAILY Ranitidine (Ranitidine) 150 Mg Capsule 150 MG PO BID Sulfamethoxazole/Trimeth 800-160 mg (Bactrim DS 800-160 mg) 1 Each Tablet 1 TABLET PO BID Scheduled PRN Metoclopramide (Reglan) 10 Mg Tablet 10 MG PO QID PRN PRN For Nausea/Vomiting Ondansetron ODT (Zofran ODT) 8 Mg Tablet 8 MG PO Q4H PRN PRN For Nausea Ondansetron ODT (Zofran ODT) 8 Mg Tablet 8 MG PO QID PRN PRN For Nausea General Time Seen by Provider: 02:45 Chief Complaint Chief Complaint: Other (Stood dark) Hx Obtained From: Patient Arrived By: Walk-in Onset Occurred: Just prior to arrival Symptom Duration: Since onset Location: : Epigastric Quality: Painful Severity: Current: Moderate Severity: Maximum: Moderate Recent Healthcare: Recent doctor visit Similar Sx Previous: No Past Medical History Past Medical History HIV positive- currently on anti retroviral medication Past Surgical History Reports: Cholecystectomy Family History Noncontributory Smoking History Unknown if Ever Smoker Social History Alcohol Use: Denies alcohol use Drug Use: THC Other Social History: Good social support, Local resident Ambulatory Status Independent Review of Systems Respiratory: Denies: Non-productive cough, Shortness of breath GI: Reports: Abdominal pain (Cramping), Hematochezia (Dark stool) Complete sys rev & neg: except as marked. Physical Exam Initial Vital Signs Vital Signs (First) Date Time Temp Pulse Resp B/P Pulse Ox O2 Delivery O2 Flow Rate FiO2 08/26/16 02:22 37.3 100 18 152/101 98 Room Air Initial VS: Reviewed, Vital signs abnormal Head / Eyes: Atraumatic, Normocephalic Neck: Supple, Full range of motion Extremities: Vascular intact, Neuro intact Skin: Warm, Dry, No cyanosis Neurologic: Alert, Oriented, Nonfocal Psychiatric: Mood/affect normal, Behavior normal General/Constitutional: Awake, Alert, Cooperative Respiratory / Chest: Atraumatic, Breath sounds NL, Breath sounds = bilat Cardiovascular: Heart rate NL, Regular rhythm, Heart sounds NL Abdomen: Soft Mildly tender across epigastrium Rectal for Blood: Negative: Melena present Pt provided stool on arrival; darkened stool present. Interpretation & Diagnostics Lab Results Interpretation Result Diagram: 08/26/16 0336 08/26/16 0300 Test 08/26/16 03:00 08/26/16 03:36 White Blood Count 10.4th/mm3 (3.8-10.1) Red Blood Count 5.25mil/mm3 (4.40-5.80) Mean Corpuscular Volume 89.9fL (81-100) Mean Corpuscular Hemoglobin 31.8pg (27.0-35.0) Mean Corpuscular Hemoglobin Concent 35.4% (32.0-37.0) Red Cell Distribution Width 13.1% (12.3-15.4) Platelet Count 244bil/L (150-400) Neutrophils (%) (Auto) 64.4% (40-74) Lymphocytes (%) (Auto) 24.7% (14-46) Monocytes (%) (Auto) 10.3% (4-12) Eosinophils (%) (Auto) 0.2% (0-5) Basophils (%) (Auto) 0.3% (0-3) Prothrombin Time 10.3sec (8.1-12.5) Prothromb Time International Ratio 0.96ratio Sodium Level 136mEq/L (134-144) Potassium Level 3.7mEq/L (3.5-5.2) Chloride Level 99mEq/L (97-108) Carbon Dioxide Level 18mmol/L (18-29) Blood Urea Nitrogen 12mg/dL (6-20) Creatinine 0.60mg/dL (0.76-1.27) Estimat Glomerular Filtration Rate 163mL/min (>59) Glucose Level 125mg/dL (60-99) Calcium Level 10.2mg/dL (8.5-10.1) Magnesium Level 2.1mg/dL (1.6-2.6) Total Bilirubin 0.5mg/dL (0.0-1.2) Aspartate Amino Transf (AST/SGOT) 39U/L (0-50) Alanine Aminotransferase (ALT/SGPT) 54U/L (0-44) Alkaline Phosphatase 72U/L (25-150) Total Protein 8.1g/dL (6.4-8.4) Albumin 5.0g/dL (3.4-5.0) Hemoglobin 16.7g/dL (13.8-17.2) Hematocrit 47.7% (41.0-50.0) Lab values outside NL range: no clinical significance. Lab Results Interpretation: No change in serial hematocrits Re-Eval/Medical Decision Med Decision/Clinical Course 35-year-old male who had recent upper and lower endoscopy with biopsies of both hands. He now presents with some abdominal cramping and passing dark blood per rectum. Orthostatic vital signs were normal. His hematocrit was normal with no drop on repeat. He did pass smaller amounts of additional bloody stool. He was given IV Protonix while here in the emergency room and hydrated. He is being discharged home. He will return to the emergency room [facility] here or at [facility] if he has increased bleeding, fever, increased abdominal pain or starts to get symptoms of lightheadedness with standing. Otherwise he will follow-up towards the end of the week with his endoscopist. Source of Hx: Old records Re-Evaluation/Progress : Time of Eval: 04:54 Patient Status: Condition improved Re-Evaluation/Progress Note: Pt rechecked. Informed pt of plan for discharge. Pt understands and agrees with plan for discharge. F/U instructions and RTER warnings given. All questions addressed. Counseled Regarding: Diagnosis, Lab results, Need for follow-up, When/why to return to ED Discharge & Departure Impression: Primary Impression: GI bleeding GI bleed type/associated pathology: unspecified gastrointestinal hemorrhage type Qualified Code: K92.2 - Gastrointestinal hemorrhage, unspecified Disposition: Home Discharge Condition All VS Reviewed: Yes Condition: Stable Additional Instructions: The amount of bleeding at this time does not appear dangerous. There is no significant change in your vital signs or your blood counts. Continue your current antacids. I suspect that this bleeding is from the upper biopsy site, and it should taper and stop on its own. If not any to follow up in the emergency room at [facility]. Call me at [phone] between the hours of 9 PM and 6 AM for the next couple of nights if you have any questions or concerns. Referrals: MALU LEZAMA (PCP) Jamarcusibe Attestation Portions of this note were transcribed by Raisa Rivera. I, Dr. Allen personally performed the history, physical exam and medical decision-making; I reviewed and confirmed the accuracy of the information in the transcribed note. Signed by: Sukhjinder Ellis, 08/26/16 and 04:50. copies to: MALU LEZAMA Howard L MD Aug 26, 2016 02:33 Raisa Tripathi Aug 26, 2016 02:51
[2016-08-26] MEDS ORDERED: Pantoprazole 4 mg/mL 10 mL Inj IVPUSH ONE (02:50)
[2016-08-26] MEDS ORDERED: Pantoprazole Inj 80 MG, Pharmacy To Mix 1 EA in 0.9% Sodium Chloride 80 ML IV ONE ×2 (02:50)
[2016-08-26 03:07] LABS: BASOPHILS % (AUTO) 0.3 % (0-3); EOSINOPHILS % (AUTO) 0.2 % (0-5); MONOCYTES % (AUTO) 10.3 % (4-12); Mean Corpuscular Hemoglobin 31.8 pg (27.0-35.0); Mean Corpuscular Volume 89.9 fL (81-100); NEUTROPHILS % (AUTO) 64.4 % (40-74); Platelet Count 244 bil/L (150-400)
[2016-08-26 03:24] LABS: INR 0.96 ratio
[2016-08-26 03:29] LABS: Magnesium 2.1 mg/dL (1.6-2.6)
[2016-08-26] MEDS ORDERED: Haloperidol 5 mg/mL Inj IM ONE (03:55)
[2016-08-26 04:11] VITALS: BP 130/90; PULSE 72; RESP 16; O2SAT 97
[2016-08-26 04:27] VITALS: BP 124/83; PULSE 72
[2016-08-26 04:28] VITALS: BP 141/91; PULSE 67
[2016-08-26 04:29] VITALS: BP 137/92; PULSE 81
[2016-08-26 06:01] VITALS: BP 140/90; PULSE 76; RESP 20; O2SAT 99
== END 2016-08-26 06:04 | disposition home or self-care (01) ==
LOC: SED 02:19
DX: K92.2 Gastrointestinal hemorrhage, unspecified (principal); R10.13 Epigastric pain; Z90.49 Acquired absence of other specified parts of digestive tract; Z88.1 Allergy status to other antibiotic agents